=== PATIENT | female | born 1970 | race Caucasian/White ===

== ENCOUNTER 2021-05-22 11:15 | Emergency (ER) | payer BC, SELFPAY ==
--- NOTE | ~2021-05-22 | XR_ITS ---
EXAMINATION: CR X-RAY ANKLES AND FEET BILATERAL CLINICAL INFORMATION: Bilateral ankle and foot pain status post fall. COMPARISON: None TECHNIQUE: 3 views each of the bilateral ankles and feet were obtained. FINDINGS: Left ankle: There is a nondisplaced oblique spiral type fracture of the distal fibula extending to the lateral malleolus. The medial malleolus appears intact. The tibiotalar joint space is unremarkable. Mild to moderate soft tissue swelling is seen more pronounced laterally. Left foot. There is a minimally displaced transverse fracture at the level the proximal metaphysis of the third metatarsal. The remainder the digits are intact. The tarsal bones are normally aligned. There is mild soft tissue swelling. Right ankle. An osteochondral defect is seen along the medial articular margin of the talus. The tibiotalar joint space is unremarkable. The medial and lateral malleoli are intact. The soft tissues are unremarkable. Right foot: There is a minimally displaced fracture at the base of the fifth metatarsal. Mild adjacent soft tissue swelling is seen. The remainder the digits appear intact. XR/XR ankle LT min 3V IMPRESSION: 1. Left ankle nondisplaced spiral fracture of the distal fibula with adjacent moderate soft tissue swelling. 2. Left foot minimally displaced transverse fracture of the proximal metaphysis of the third metatarsal. 3. Right ankle medial talar osteochondral defect without acute features. 4. Right foot acute minimally displaced fracture of the base of the fifth metatarsal.
--- NOTE | ~2021-05-22 | XR_ITS ---
EXAMINATION: CR X-RAY ANKLES AND FEET BILATERAL CLINICAL INFORMATION: Bilateral ankle and foot pain status post fall. COMPARISON: None TECHNIQUE: 3 views each of the bilateral ankles and feet were obtained. FINDINGS: Left ankle: There is a nondisplaced oblique spiral type fracture of the distal fibula extending to the lateral malleolus. The medial malleolus appears intact. The tibiotalar joint space is unremarkable. Mild to moderate soft tissue swelling is seen more pronounced laterally. Left foot. There is a minimally displaced transverse fracture at the level the proximal metaphysis of the third metatarsal. The remainder the digits are intact. The tarsal bones are normally aligned. There is mild soft tissue swelling. Right ankle. An osteochondral defect is seen along the medial articular margin of the talus. The tibiotalar joint space is unremarkable. The medial and lateral malleoli are intact. The soft tissues are unremarkable. Right foot: There is a minimally displaced fracture at the base of the fifth metatarsal. Mild adjacent soft tissue swelling is seen. The remainder the digits appear intact. XR/XR foot RT min 3V IMPRESSION: 1. Left ankle nondisplaced spiral fracture of the distal fibula with adjacent moderate soft tissue swelling. 2. Left foot minimally displaced transverse fracture of the proximal metaphysis of the third metatarsal. 3. Right ankle medial talar osteochondral defect without acute features. 4. Right foot acute minimally displaced fracture of the base of the fifth metatarsal.
--- NOTE | ~2021-05-22 | XR_ITS ---
EXAMINATION: CR X-RAY ANKLES AND FEET BILATERAL CLINICAL INFORMATION: Bilateral ankle and foot pain status post fall. COMPARISON: None TECHNIQUE: 3 views each of the bilateral ankles and feet were obtained. FINDINGS: Left ankle: There is a nondisplaced oblique spiral type fracture of the distal fibula extending to the lateral malleolus. The medial malleolus appears intact. The tibiotalar joint space is unremarkable. Mild to moderate soft tissue swelling is seen more pronounced laterally. Left foot. There is a minimally displaced transverse fracture at the level the proximal metaphysis of the third metatarsal. The remainder the digits are intact. The tarsal bones are normally aligned. There is mild soft tissue swelling. Right ankle. An osteochondral defect is seen along the medial articular margin of the talus. The tibiotalar joint space is unremarkable. The medial and lateral malleoli are intact. The soft tissues are unremarkable. Right foot: There is a minimally displaced fracture at the base of the fifth metatarsal. Mild adjacent soft tissue swelling is seen. The remainder the digits appear intact. XR/XR foot LT min 3V IMPRESSION: 1. Left ankle nondisplaced spiral fracture of the distal fibula with adjacent moderate soft tissue swelling. 2. Left foot minimally displaced transverse fracture of the proximal metaphysis of the third metatarsal. 3. Right ankle medial talar osteochondral defect without acute features. 4. Right foot acute minimally displaced fracture of the base of the fifth metatarsal.
--- NOTE | ~2021-05-22 | XR_ITS ---
EXAMINATION: CR X-RAY ANKLES AND FEET BILATERAL CLINICAL INFORMATION: Bilateral ankle and foot pain status post fall. COMPARISON: None TECHNIQUE: 3 views each of the bilateral ankles and feet were obtained. FINDINGS: Left ankle: There is a nondisplaced oblique spiral type fracture of the distal fibula extending to the lateral malleolus. The medial malleolus appears intact. The tibiotalar joint space is unremarkable. Mild to moderate soft tissue swelling is seen more pronounced laterally. Left foot. There is a minimally displaced transverse fracture at the level the proximal metaphysis of the third metatarsal. The remainder the digits are intact. The tarsal bones are normally aligned. There is mild soft tissue swelling. Right ankle. An osteochondral defect is seen along the medial articular margin of the talus. The tibiotalar joint space is unremarkable. The medial and lateral malleoli are intact. The soft tissues are unremarkable. Right foot: There is a minimally displaced fracture at the base of the fifth metatarsal. Mild adjacent soft tissue swelling is seen. The remainder the digits appear intact. XR/XR ankle RT min 3V IMPRESSION: 1. Left ankle nondisplaced spiral fracture of the distal fibula with adjacent moderate soft tissue swelling. 2. Left foot minimally displaced transverse fracture of the proximal metaphysis of the third metatarsal. 3. Right ankle medial talar osteochondral defect without acute features. 4. Right foot acute minimally displaced fracture of the base of the fifth metatarsal.
[2021-05-22 11:21] VITALS: BP 123/68; PULSE 69; RESP 18; TEMP 36.2; O2SAT 100; BMI 21.2
--- NOTE | 2021-05-22 14:21 | ED.LOWEXIN ---
HPI - Extremity Injury (Lower) General Chief Complaint: Extremity Injury, Lower Stated Complaint: FALL Time Seen by Provider: 05/22/21 11:35 History of Present Illness HPI Narrative: Patient complains to pain in both feet and ankles after tripping on stairs this morning, she can ambulate but it is very painful, no other injury, no numbness weakness or tingling, no headache no neck pain no back pain Related Data Previous Rx's Medication Instructions Recorded acetaminophen 500 mg tablet 1,000 mg PO QID PRN #30 tab 05/22/21 ibuprofen 600 mg tablet 600 mg PO Q6H PRN #20 tab 05/22/21 oxycodone 5 mg tablet 5 mg PO Q6H PRN #10 tab 05/22/21 Allergies Allergy/AdvReac Type Severity Reaction Status Date / Time No Known Allergies Allergy Verified 05/24/21 12:50 Review of Systems Review of Systems: Positive for bilateral foot and ankle pain after fall Negatives are no dizziness no weakness no fainting no feeling faint no preceding dizziness no headache no head injury no neck pain no chest pain no rib pain no difficulty breathing no abdominal pain no back pain no numbness weakness or tingling no other upper extremity pains or knee pains Yes all other systems are reviewed and are negative PMFSH Past Medical History Source: nursing notes reviewed Medical History No known health problems Social History Social History (Updated 05/24/21 @ 12:50 by Karoline Pisano) Current occupational status: employed Current occupation: senior tax accountant/rt hand Physical Exam Vital Signs: Vital Signs: Last Vital Signs Temp 97.2 F 05/22/21 11:21 Pulse 69 05/22/21 11:21 Resp 18 05/22/21 11:21 BP 123/68 05/22/21 11:21 Pulse Ox 100 05/22/21 11:21 Body Mass Index 21.2 General appearance is no acute distress Head is normocephalic atraumatic Neck is supple The chest is clear to auscultation bilateral no chest wall tenderness no rib tenderness The back full range of motion nontender Extremities upper extremities full range of motion Lower extremities there is tenderness and swelling on the medial aspects of both right and left feet and ankle, skin is intact on both ankles and neurovascular intact on both feet Course Course Course Narrative: X-ray showed a left ankle nondisplaced spiral fracture of the distal fibula, the left foot had a minimally displaced transverse fracture of the 3rd metatarsal The right foot had a minimally displaced fracture of the base of the 5th metatarsal This was discussed with orthopedist Dr. Mcdowell for best plan who advised ortho boot for bracing both feet as well as a walker and advised minimal weight-bearing and patient will follow in the office Patient agreed with this plan and was able to ambulate with the walker with advice to limit ambulation as much as possible and patient was discharged to follow with Dr. Mcdowell Discharge Plan Discharge Clinical Impression: Ankle fracture, left, Fracture of left foot, Foot fracture, right Patient Disposition: Home, Self-Care Additional Instructions: X-ray showed you have 2 fractures in your feet as well as a left ankle fracture Minimal weight-bearing Follow with orthopedist next week, this case was discussed with Dr. Mcdowell so make sure you tell the border measurer and cutter that when you make your appointment Return any time any worse condition or any concerns Prescriptions: New acetaminophen 500 mg tablet 1,000 mg PO QID PRN (Reason: pain) Qty: 30 RF: 0 ibuprofen 600 mg tablet 600 mg PO Q6H PRN (Reason: pain) Qty: 20 RF: 0 oxycodone 5 mg tablet 5 mg PO Q6H PRN (Reason: pain) Qty: 10 RF: 0 Referrals: Leeroy Mcdowell MD [Physician] - 2 days (Bilateral foot fractures and left ankle fracture) Stand Alone Forms: Work/School Release Interventions: ED Discharge Assessment Last Done: 05/22/21 14:33 Discharge Date/Time: 05/22/21 14:33
== END 2021-05-22 14:33 | disposition home or self-care (01) ==
PROVIDERS: Emergency Provider Emergency Medicine; PCP Internal Medicine
DX: S82.445A Nondisplaced spiral fracture of shaft of left fibula, initial encounter for closed fracture (principal); S92.332A Displaced fracture of third metatarsal bone, left foot, initial encounter for closed fracture; S92.351A Displaced fracture of fifth metatarsal bone, right foot, initial encounter for closed fracture; W10.8XXA Fall (on) (from) other stairs and steps, initial encounter; Y93.89 Activity, other specified; Y92.9 Unspecified place or not applicable; Y99.9 Unspecified external cause status
CPT/HCPCS: 73610; 73630; 99283

== ENCOUNTER → 2021-05-24 12:26 | Outpatient (BNVA) | payer BC, SELFPAY | PROVIDERS: PCP Internal Medicine; Visit Provider Physician Assistant ==

== ENCOUNTER 2021-06-23 06:03 | Outpatient (REF) | payer BC, SELFPAY ==
--- NOTE | ~2021-06-23 | XR_ITS ---
EXAMINATION: BILATERAL FOOT AND LEFT ANKLE. CLINICAL INFORMATION: Pain in left foot. COMPARISON: None TECHNIQUE: 3 views left ankle, 3 views each foot. FINDINGS: LEFT ANKLE: There is a nondisplaced distal fibular oblique fracture. The ankle mortise and subtalar joints are normal. There is moderate lateral malleolar soft tissue swelling. LEFT FOOT: There is a nondisplaced fracture proximal third metatarsal. No additional fracture or dislocation seen. There is mild dorsal mid mid foot soft tissue swelling. RIGHT FOOT: There is a displaced fracture base of fifth metatarsal. The ankle mortise and subtalar joints are normal. There is no visible acute fracture, dislocation or subluxation seen. The soft tissues are normal. XR/XR foot LT min 3V IMPRESSION: Nondisplaced fracture proximal third metatarsal left foot with mild dorsal mid foot soft tissue swelling. There is an oblique fracture distal fibula with moderate lateral malleolar soft tissue swelling left ankle. Mildly displaced fracture base of fifth metatarsal right foot with mild soft tissue swelling.
--- NOTE | ~2021-06-23 | XR_ITS ---
EXAMINATION: BILATERAL FOOT AND LEFT ANKLE. CLINICAL INFORMATION: Pain in left foot. COMPARISON: None TECHNIQUE: 3 views left ankle, 3 views each foot. FINDINGS: LEFT ANKLE: There is a nondisplaced distal fibular oblique fracture. The ankle mortise and subtalar joints are normal. There is moderate lateral malleolar soft tissue swelling. LEFT FOOT: There is a nondisplaced fracture proximal third metatarsal. No additional fracture or dislocation seen. There is mild dorsal mid mid foot soft tissue swelling. RIGHT FOOT: There is a displaced fracture base of fifth metatarsal. The ankle mortise and subtalar joints are normal. There is no visible acute fracture, dislocation or subluxation seen. The soft tissues are normal. XR/XR ankle LT min 3V IMPRESSION: Nondisplaced fracture proximal third metatarsal left foot with mild dorsal mid foot soft tissue swelling. There is an oblique fracture distal fibula with moderate lateral malleolar soft tissue swelling left ankle. Mildly displaced fracture base of fifth metatarsal right foot with mild soft tissue swelling.
--- NOTE | ~2021-06-23 | XR_ITS ---
EXAMINATION: BILATERAL FOOT AND LEFT ANKLE. CLINICAL INFORMATION: Pain in left foot. COMPARISON: None TECHNIQUE: 3 views left ankle, 3 views each foot. FINDINGS: LEFT ANKLE: There is a nondisplaced distal fibular oblique fracture. The ankle mortise and subtalar joints are normal. There is moderate lateral malleolar soft tissue swelling. LEFT FOOT: There is a nondisplaced fracture proximal third metatarsal. No additional fracture or dislocation seen. There is mild dorsal mid mid foot soft tissue swelling. RIGHT FOOT: There is a displaced fracture base of fifth metatarsal. The ankle mortise and subtalar joints are normal. There is no visible acute fracture, dislocation or subluxation seen. The soft tissues are normal. XR/XR foot RT min 3V IMPRESSION: Nondisplaced fracture proximal third metatarsal left foot with mild dorsal mid foot soft tissue swelling. There is an oblique fracture distal fibula with moderate lateral malleolar soft tissue swelling left ankle. Mildly displaced fracture base of fifth metatarsal right foot with mild soft tissue swelling.
== END 2021-06-23 06:04 | disposition home or self-care (01) ==
LOC: HO.HOSX 06:03
PROVIDERS: Visit Provider Physician Assistant
DX: S82.832D Other fracture of upper and lower end of left fibula, subsequent encounter for closed fracture with routine healing (principal); S92.351D Displaced fracture of fifth metatarsal bone, right foot, subsequent encounter for fracture with routine healing; S92.332D Displaced fracture of third metatarsal bone, left foot, subsequent encounter for fracture with routine healing
CPT/HCPCS: 73610; 73630

== ENCOUNTER 2021-07-28 13:05 | Outpatient (REF) | payer BC, SELFPAY ==
--- NOTE | ~2021-07-28 | XR_ITS ---
EXAMINATION: XR FOOT, RIGHT CLINICAL INFORMATION: Displaced fracture fifth metatarsal bone. COMPARISON: Radiograph of the right foot dated from 06/23/2021. TECHNIQUE: AP, lateral, and oblique views of the right foot. FINDINGS: Unchanged appearance of a mildly displaced fracture at the base of the fifth metatarsal bone. No other fractures. Joints are preserved. XR/XR foot RT min 3V IMPRESSION: No significant change in the appearance of a comminuted and minimally displaced fracture at the base of the fifth metatarsal bone.
--- NOTE | ~2021-07-28 | XR_ITS ---
EXAMINATION: XR FOOT, LEFT CLINICAL INFORMATION: Pain in the left foot. COMPARISON: Radiograph dated from 06/23/2021. TECHNIQUE: AP, lateral, and oblique views of the left foot. FINDINGS: Healing fracture at the base of the third metatarsal bone with some bony bridging and subcortical sclerosis. Alignment is unchanged with approximately 3 mm of medial displacement of the distal fracture fragment. On the lateral view a subtle cuboid fracture is also stable. XR/XR foot LT min 3V IMPRESSION: Interval healing of a fracture at the base of the third metatarsal bone which remains slightly displaced. Additional fracture of the cuboid is not significantly changed. Given multiple fractures, consider further evaluation with a CT of the left foot to assess the patency of the Lisfranc ligament and rule out other injuries.
--- NOTE | ~2021-07-28 | XR_ITS ---
EXAMINATION: XR ANKLE, LEFT CLINICAL INFORMATION: Pain. Follow-up fracture. COMPARISON: Radiograph of the left ankle dated from 06/23/2021. TECHNIQUE: AP, lateral, and mortise views of the left ankle. FINDINGS: Unchanged obliquely oriented fracture of the distal fibula. The ankle mortise and talar dome are preserved. There is decreased lateral malleolus soft tissue edema. XR/XR ankle LT min 3V IMPRESSION: Very minimal bony bridging with less apparent fracture lines within an obliquely oriented fracture of the distal fibula. Alignment is unchanged.
== END 2021-07-28 13:06 | disposition home or self-care (01) ==
LOC: HO.HOSX 13:05
PROVIDERS: Visit Provider Physician Assistant
DX: S82.832D Other fracture of upper and lower end of left fibula, subsequent encounter for closed fracture with routine healing (principal); S92.332D Displaced fracture of third metatarsal bone, left foot, subsequent encounter for fracture with routine healing; S92.352D Displaced fracture of fifth metatarsal bone, left foot, subsequent encounter for fracture with routine healing
CPT/HCPCS: 73610; 73630

== ENCOUNTER 2021-09-09 14:00 | Outpatient (RCR) | payer BC, SELFPAY ==
--- NOTE | 2021-07-07 10:20 | MHC.PT.EP ---
[facility] [place] Office [place] Office [place] Office [address] [phone] F: [phone] F: [phone] F: [phone] F: [phone] Physical Therapy Plan of Care Date of Evaluation: Date of Surgery: N/A Diagnosis: Other fracture of upper and lower end of left fibula Assessment: Pt is a 50yo F who presents to PT s/p L closed fracture of distal end of left fibula, Fracture of fifth metatarsal bone of right foot, and Fracture of third metatarsal bone of left foot s/p fall down the stairs. She did not undergo surgery and has B boots that she is able to wean off on 07/07/21 per ortho. She presents to PT today with current impairments in pain, ROM, strength, muscle length, gait, and balance. She is limited functionally by prolonged standing, ambulation, stairs, and squatting. She is an excellent candidate for skilled PT services to address current impairments and facilitate return to PLOF. Frequency and Duration: The patient will be seen 2x/week for 5 weeks Short Term Goals: Pt will be I with HEP to promote self management of symptoms. Pt will improve DF ROM by 5 deg LLE. Public Services Assistant Goals: Pt will demonstrate full ROM and strength throughout L ankle Pt will ambulate > 30 min with pain < 2 /10 Pt will demonstrate improvements in functional mobility as evidenced by statistically significant improvement in LEFI outcome measure. Treatment Plan: Modalities to reduce pain, spasms and effusion. Manual therapy to restore motion and function. Therapeutic exercise to improve strength and flexibility. Neuromuscular re-education for posture and balance. Therapeutic activities to return to functional activities of daily living. Electronically signed by: Irena Haines, PT, DPT Please sign and return to therapist. Thank you for your referral.
--- NOTE | 2021-09-09 15:11 | MHC.PT.DC ---
[facility] [place] Office [place] Office [place] Office [address] [phone] F: [phone] F: [phone] F: [phone] F: [phone] Physical Therapy Discharge Report Diagnosis: Other fracture of upper and lower end of left fibula Date of Surgery: N/A Date of Evaluation: 07/06/21 Date of Discharge: 09/09/21 Treatments to Date: 16 Cancellations to Date: No Shows to Date: Discharge Status: Achieved Goals Improved Function Independent with HEP Discharge Summary: Pt has make excellent progress since SOC. She has improved her LEFI outcome measure from 23/80 on initial PT evaluation to 72/80 today. She has met all her STGs and LTGS. She does continue to have mild discomfort on R lateral aspect of her foot and she was recommended to follow up with ortho if it does not improve within a few weeks. She is I with HEP and is being D/C from skilled PT services at this time. Pt reports no further questions for PT. No further skilled PT intervention indicated at this time. Electronically signed by: Irena Haines, PT, DPT Please sign and return to therapist. Thank you for your referral.
== END 2021-09-09 15:11 | disposition home or self-care (01) ==
LOC: HO.PT 14:00
PROVIDERS: PCP Internal Medicine; Visit Provider Physician Assistant
DX: S82.832A Other fracture of upper and lower end of left fibula, initial encounter for closed fracture (principal)
CPT/HCPCS: 97110; 97112; 97140; 97162; 97530

== ENCOUNTER 2025-06-11 10:16 | Outpatient (AMB) | payer BC, SELFPAY ==
--- NOTE | 2025-06-11 10:25 | MHC.PC.OV ---
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 Post menopausal: Yes Allergies No Known Allergies Allergy (Verified 06/11/25 10:28) Medication List - Last Reconciled 06/11/25 by Bushra Padilla PA-C acetaminophen 1,000 mg (2 x 500 mg) PO QID PRN ibuprofen 600 mg PO Q6H PRN Tobacco use date assessed: 06/11/25 Dental Screening Dental Screen Date: 06/11/25 Did you have a dental visit in the last 12 months?: Yes Did you have a dental problem in the last 6 months where you did not have access to dental care?: No Was dental information given to patient?: Patient has dentist HPI SMALL BUSINESS REPRESENTATIVE requesting CPE HPI Details Patient is a 54-year-old female who presents today to establish care and for a physical exam. She does not have any acute concerns today. Denies any significant past medical history. MSK: In 2020 she did fracture both feet and ankles. Has overall healed well. Mammo: 2018, overdue Bone density: never had, post menopause 3 years Colonoscopy: never had Checker: overdue Family history: Brother recently diagnosed with MDS, maternal grandmother had breast cancer in her 50s Son is getting in July Medical History (Updated 06/11/25 @ 10:48 by Bushra Padilla PA-C) Shingles No known health problems Surgical History (Updated 06/11/25 @ 10:37 by Lien Bowles MA) Hx of tonsillectomy Family History (Updated 06/11/25 @ 10:33 by Lien Bowles MA) Father Hypertension Diabetes Cardiovascular disease Substance abuse Paternal Grandmother Cardiovascular disease Maternal Grandfather Cardiovascular disease Mother Clotting disorder Maternal Grandmother Bone cancer Breast cancer Brother MDS (myelodysplastic syndrome) Social History (Updated 06/11/25 @ 10:34 by Lien Bowles MA) Housing: House Alcohol intake: current Patient Tobacco Use Status: Never used Tobacco e-Cigarette/Vaping Use: Never Used Second Hand Smoke Exposure: No Use of substances other than those prescribed or required for medical reasons: No service: No Current occupational status: employed Current occupation: rt hand/senior fund accountant Current occupational exposures/hazards: Yes Cognitive needs: No Hearing needs: No Vision needs: No Questionnaire PHQ-9 Over the last 2 weeks, how often have you been bothered by any of the following problems? 1. Little interest or pleasure in doing things: not at all 2. Feeling down, depressed, or hopeless: not at all 3. Trouble falling or staying asleep, or sleeping too much: not at all 4. Feeling tired or having little energy: not at all 5. Poor appetite or overeating: not at all 6. Feeling bad about yourself - or that you are a failure or have let yourself or your family down: not at all 7. Trouble concentrating on things, such as reading the newspaper or watching television: not at all 8. Moving or speaking so slowly that other people could have noticed. Or the opposite - being so fidgety or restless that you have been moving around a lot more than usual: not at all 9. Thoughts that you would be better off or of hurting yourself in some way: not at all Total score: 0 Depression Screening Interpretation: Negative Depression Screening Done: Yes 61157 - PHQ-9 Billing: Yes Source: Developed by Drs. Bo Arellano, Evette Vásquez, Philip Ackerman and colleagues, with an educational chauncey from [employer]. Thrive Questionnaire Date Thrive assessed: 06/11/25 I am a: Patient What is your living situation today?: I have a steady place to live Within the past 12 months, did the food you bought not last and you didn't have the money to get more?: Never true Within the past 12 months, did you worry whether your food would run out before you got money to buy more?: Never true Do you have trouble paying for medicines?: No Do you have trouble getting transportation to medical appointments?: No Do you have trouble paying your heating and electricity bill?: No Do you have trouble taking care of your child, family member or friend?: No Do you have trouble with day-to-day activities such as bathing, preparing meals, shopping, managing finances, etc.?: No Are you currently unemployed and looking for a job?: No Are you interested in more education?: No Please select the resources that you would like help with: None Currently or been in a relationship where the following occur: No concerns reported THRIVE Score: 0 AUDIT C Alcohol Use Questionnaire (AUDIT-C) 1. How often do you have a drink containing alcohol?: 2-4 times a month 2. How many drinks containing alcohol do you have on a typical day when you are drinking?: 1 or 2 3. How often do you have six or more drinks on one occasion?: Never Total Score: 2 YAMILKA-7 AMB Questionnaire YAMILKA-7 Date YAMILKA - 7 assessed: 06/11/25 Feeling nervous, anxious, or on edge: 0 = Not at all Not being able to stop or control worryin = Not at all Worrying too much about different things: 0 = Not at all Trouble relaxin = Not at all Being so restless that it is hard to sit still: 0 = Not at all Becoming easily annoyed or irritable: 0 = Not at all Feeling afraid as if something awful might happen: 0 = Not at all Total YAMILKA-7 score (0-4 normal; 5-9 mild; 10-14 moderate; 15-21 severe): 0 Source: Developed by Drs. Bo Arellano, Evette Vásquez, Philip Ackerman and colleagues, with an educational chauncey from [employer]. YAMILKA-7 Assessment Billing YAMILKA-7 Assessment Tool: YAMILKA-7 Assessment 24641 Physical exam (Primary Care) Vital Signs: Last Vital Signs Temp 97.8 F 06/11/25 10:34 Pulse 80 06/11/25 10:34 BP 102/82 06/11/25 10:34 Pulse Ox 98 06/11/25 10:34 Oxygen Delivery Method Room Air 06/11/25 10:34 BMI result Body Mass Index 20.8 Tobacco/Smoking Status: Tobacco use Status Tobacco use date assessed 06/11/25 06/11/25 10:36 Patient Tobacco Use Status Never used Tobacco 06/11/25 10:36 e-Cigarette/Vaping Use Never Used 06/11/25 10:36 PHQ-9: PHQ-9 Score PHQ-9: Total score 0 06/11/25 10:27 Depression Screening Interpretation: Negative Thrive Assessment: Date of Thrive Assessment Date Thrive assessed 06/11/25 06/11/25 10:27 Currently or been in a relationship where the following occur: No concerns reported Const Orientation/consciousness: patient oriented x3 HENMT Ears: hearing grossly normal bilaterally and TM's normal bilaterally General nose exam: No nasal polyps present Face and sinus: Yes sinuses nontender Mouth: Normal oral and palatal mucosa present Eyes Pupils: Equal, round and reactive pupils present EOM: EOMs intact bilaterally Neck Neck: Yes full ROM and Yes no lymphadenopathy Thyroid: Thyroid normal Chest Chest palpation & inspection: normal inspection of the chest Breast/axilla inspection: normal inspection of the breasts and normal inspection of the axillae Breast/axilla palpation: normal palpation of the breasts and normal palpation of the axillae Resp Auscultation: clear to auscultation bilaterally Cardio Rate: regular rate Rhythm: regular rhythm Heart sounds: S1 normal heart sound present and S2 normal heart sound present Peripheral pulses: Peripheral pulses 2+ throughout GI Other: Soft, nontender Auscultation: normal bowel sounds Rectal Exam - Female: deferred General: Yes no CVA tenderness Back/Spine/Pelvis Other: Nontender Back: no CVA tenderness Skin General skin exam: no rashes or lesions noted Neuro General: patient oriented x3, gait normal, CN's II-XI intact bilaterally and deep tendon reflexes 2+ bilaterally Cranial nerves: Yes Equal, round and reactive pupils present Motor exam (neuro): 5/5 motor strength present throughout Sensory Exam: double simultaneous stimulation for sensation normal Coordination: [id number] test normal and Romberg test negative Extrem General: Yes normal to inspection and Yes full ROM Psych Affect: normal affect Attitude: cooperative Thought process: Normal thought process present Thought content: Normal thought content present Insight: Good insight present (Psych) Judgement: Good judgement present (Psych) Coding Level of Care Code New Pt Prev Care 40-64y(03389) Diagnoses Encounter for routine history and physical examination Z00.00 Additional Codes PHQ-9 - 52551 - PHQ-9 Billing: Yes ([id number]) YAMILKA-7 Assessment Billing - YAMILKA-7 Assessment Tool: YAMILKA-7 Assessment 52369 ([id number]) Assessment & Plan Assessment & Plan (1) Encounter for routine history and physical examination: Code(s): Z00.00 - Encounter for general adult medical examination without abnormal findings Plan: Health maintenance reviewed Labs ordered Bone density ordered 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 Referral to GI for colonoscopy screening Mammogram ordered Orders: Orders TSH reflex Free T4 Today Z00.00 - Encounter for general adult medical examination without abnormal findings UA CC w/rflx Micro + Cult Today Z00.00 - Encounter for general adult medical examination without abnormal findings, Z13.220 - Encounter for screening for lipoid disorders Microalbumin, Random (w Creat) Today Z00.00 - Encounter for general adult medical examination without abnormal findings MM screening mammo BI Today Z12.31 - Encounter for screening mammogram for malignant neoplasm of breast Complete Blood Count Auto Diff Today Z00.00 - Encounter for general adult medical examination without abnormal findings Comprehensive Rickman. 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
[2025-06-11 10:34] VITALS: BP 102/82; PULSE 80; TEMP 36.6; O2SAT 98; BMI 20.8
== END 2025-06-11 10:59 | disposition home or self-care (01) ==
LOC: HO.HMCFM 10:17
PROVIDERS: PCP Physician Assistant; Visit Provider Physician Assistant
DX: Z00.00 Encounter for general adult medical examination without abnormal findings (principal)

== ENCOUNTER 2025-06-11 10:16 | Outpatient (REF) | payer BC, SELFPAY ==
[2025-06-11 14:16] LABS: MANUAL DIFF FLAG NO
[2025-06-11 14:19] LABS: Hematocrit 38.0 % (37.0-47.0); Hemoglobin 12.5 g/dl (12.0-16.0); Imm Gran Abs Auto 0.01 X10*3/uL (0.00-0.03); Imm Gran Pct Auto 0.2 % (0.0-0.4); Lymphocytes Absolute Auto 2.7 X10*3/uL (1.2-4.9); Mean Corpuscular HGB Conc 32.9 g/dl (31.0-35.0); Mean Corpuscular Hemoglobin 30.9 pg (27.0-33.0); Mean Corpuscular Volume 94.1 fL (80.0-98.0); NRBC Abs Auto 0.000 X10*3/uL (0.0-0.012); NRBC Pct Auto 0.0 /100WBC (0.0-0.2); Platelet Count 148 X10*3/uL (160-400); Red Blood Count 4.04 X10*6/uL (4.20-5.50); White Blood Count 6.1 X10*3/uL (4.8-10.8)
[2025-06-11 14:34] LABS: Appearance Urine Clear; Glucose Urine UA Negative (Negative); PH 5.0 (5.0-9.0); Specific Gravity - Urine 1.015 (1.005-1.025); UMIC TRIGGER UACC YES
[2025-06-11 14:39] LABS: UACC Culture Trigger YES
[2025-06-11 14:39] LABS: Alanine Aminotransferase 15 U/L (0-31); Albumin Level 4.9 g/dL (3.5-5.0); Alkaline Phosphatase 56 U/L (39-117); Anion Gap 13 (12-20); Aspartate Amino Transferase 21 U/L (5-31); Blood Urea Nitrogen 15 mg/dL (9-16); Calcium 9.9 mg/dL (8.4-10.2); Carbon Dioxide 27 mmol/L (22-29); Chloride 104 mmol/L (96-108); Cholesterol 219 mg/dL (<200); Estimated Glomerular Filt Rate > 60; HDL Cholesterol 55 mg/dL (>40); Potassium 4.1 mmol/L (3.3-5.1); Sodium 140 mmol/L (135-145); Total Protein 8.1 g/dL (6.5-8.0); Triglycerides 92 mg/dL (<150)
[2025-06-11 14:58] LABS: Microalbum/Creatinine Ratio Ur 7.5 ug/mg cr (<30)
== END 2025-06-11 10:17 | disposition home or self-care (01) ==
LOC: HO.WFDLDS 10:16
PROVIDERS: PCP Physician Assistant; Visit Provider Physician Assistant
DX: Z00.00 Encounter for general adult medical examination without abnormal findings (principal); Z13.6 Encounter for screening for cardiovascular disorders; R82.90 Unspecified abnormal findings in urine; N39.0 Urinary tract infection, site not specified; Z78.0 Asymptomatic menopausal state
CPT/HCPCS: 36415; 80053; 80061; 81001; 82043; 82570; 84443; 85025; 87086; 87088; 87186; 96127

== ENCOUNTER 2025-08-20 08:13 | Outpatient (REF) | payer BC, SELFPAY ==
--- NOTE | ~2025-08-20 | MM_ITS ---
STUDY: DUAL ENERGY X-RAY ABSORPTIOMETRY / DXA REASON FOR EXAM: Female, 55 years old Z78.0 - Asymptomatic menopausal state TECHNIQUE: Bone Mineral Density (BMD) measurements of the lumbar spine and left hip were obtained using [email or web address] COMPARISON: None FINDINGS: L1-L4 BMD: 1.017 g/cm2 L1-L4 T score: -1.4. This corresponds to osteopenia. Left femoral neck BMD: 0.845 g/cm2 Left femoral neck T score: -1.4. This corresponds to osteopenia. Left total hip BMD: 0.824 g/cm2 Left total hip T score: -1.5. This corresponds to osteopenia. FRAX score: 10 year risk of major osteoporotic fracture 10.8%, 10 year risk of hip fracture 0.9% MM/XR DEXA axial skeleton IMPRESSION: Osteopenia Reference Information: The T-score is the number of standard deviations above or below the standard which is normal for young adults at their peak bone mineral density. The World Health Organization (WHO) interprets the T-scores as follows: At or above -1 SD Normal bone density Between -1 and -2.5 SD Osteopenia At or below -2.5 SD Osteoporosis Electronically signed by: Ghislaine Flores MD 08/20/2025 09:03 AM EDT
--- NOTE | ~2025-08-20 | MM_ITS ---
EXAMINATION: MM SCREENING DIGITAL BREAST TOMOSYNTHESIS, BILATERAL CLINICAL INFORMATION: Screening. Asymptomatic. COMPARISON: Comparison made to multiple prior, most recent March 28, 2019, and most remote December 22, 2015. TECHNIQUE: Digital breast tomosynthesis is performed in mediolateral oblique and craniocaudal views along with computer-aided detection (CAD). Synthesized 2D images are generated from the tomosynthesis. FINDINGS: BREAST COMPOSITION: The breasts are extremely dense, which lowers the sensitivity of mammography. BILATERAL BREASTS: Diffuse round and rim calcifications in both breasts have typically benign features. No significant masses, suspicious calcifications or other abnormalities are seen in either breast. MM/MM tomosynthesis screening BI IMPRESSION: BILATERAL BREASTS: Benign, no mammographic evidence of malignancy. Normal interval follow-up is recommended in 12 months. ASSESSMENT: BI-RADS: Category 2: Benign RECOMMENDATION: Routine annual mammography screening. FOLLOW-UP: 1 year F/U This examination should not preclude the clinical evaluation of a suspicious palpable abnormality. This patient's information was entered into a reminder system with a target due date for their next mammogram. Electronically signed by: Ghislaine Flores MD 08/24/2025 01:42 PM EDT
== END 2025-08-20 08:14 | disposition home or self-care (01) ==
LOC: HO.MAMMO 08:13
PROVIDERS: PCP Physician Assistant; Visit Provider Physician Assistant
DX: Z12.31 Encounter for screening mammogram for malignant neoplasm of breast (principal); Z13.820 Encounter for screening for osteoporosis; Z78.0 Asymptomatic menopausal state
CPT/HCPCS: 77063; 77067; 77080

== ENCOUNTER → 2025-08-20 08:45 | Outpatient (BNV) | payer BC, SELFPAY | PROVIDERS: PCP Physician Assistant; Visit Provider Radiology Body Imaging | DX: E28.39 Other primary ovarian failure (principal) | CPT/HCPCS: 77080 ==

== ENCOUNTER 2025-10-09 09:19 | Outpatient (REF) | payer BC, SELFPAY ==
[2025-10-09 14:56] LABS: MANUAL DIFF FLAG NO
[2025-10-09 15:01] LABS: Hematocrit 39.5 % (37.0-47.0); Hemoglobin 12.8 g/dl (12.0-16.0); Imm Gran Abs Auto 0.01 X10*3/uL (0.00-0.03); Imm Gran Pct Auto 0.2 % (0.0-0.4); Lymphocytes Absolute Auto 2.7 X10*3/uL (1.2-4.9); Mean Corpuscular HGB Conc 32.4 g/dl (31.0-35.0); Mean Corpuscular Hemoglobin 31.4 pg (27.0-33.0); Mean Corpuscular Volume 97.1 fL (80.0-98.0); NRBC Abs Auto 0.000 X10*3/uL (0.0-0.012); NRBC Pct Auto 0.0 /100WBC (0.0-0.2); Platelet Count 170 X10*3/uL (160-400); Red Blood Count 4.07 X10*6/uL (4.20-5.50); White Blood Count 6.2 X10*3/uL (4.8-10.8)
[2025-10-09 15:19] LABS: Alanine Aminotransferase 18 U/L (0-31); Albumin Level 4.7 g/dL (3.5-5.0); Alkaline Phosphatase 53 U/L (39-117); Anion Gap 10 (12-20); Aspartate Amino Transferase 22 U/L (5-31); Blood Urea Nitrogen 17 mg/dL (9-16); Calcium 9.8 mg/dL (8.4-10.2); Carbon Dioxide 28 mmol/L (22-29); Chloride 104 mmol/L (96-108); Cholesterol 223 mg/dL (<200); Estimated Glomerular Filt Rate > 60; HDL Cholesterol 62 mg/dL (>40); Potassium 4.3 mmol/L (3.3-5.1); Sodium 138 mmol/L (135-145); Total Protein 7.7 g/dL (6.5-8.0); Triglycerides 85 mg/dL (<150)
[2025-10-10 05:09] LABS: Lyme Abs Screen <0.90 index
== END 2025-10-09 09:20 | disposition home or self-care (01) ==
LOC: HO.WFDLDS 09:19
PROVIDERS: PCP Physician Assistant; Visit Provider Physician Assistant
DX: S70.362A Insect bite (nonvenomous), left thigh, initial encounter (principal); W57.XXXA Bitten or stung by nonvenomous insect and other nonvenomous arthropods, initial encounter; E78.5 Hyperlipidemia, unspecified
CPT/HCPCS: 36415; 80053; 80061; 84443; 85025; 86617; 86618

== ENCOUNTER 2025-10-09 09:19 | Outpatient (AMB) | payer BC, SELFPAY ==
--- NOTE | 2025-10-09 09:22 | A.OFFPC_ITS ---
Vital Signs 10/09/25 09:24 Height 5 ft 9 in Weight 144 lb 4 oz BMI 21.3 BP 96/66 Blood Pressure Location Lt brachial Position Sitting Respiration 12 Pulse 71 Pulse Source Pulse Oximeter Temp 97.6 F Temp Source Oral Pulse Oximetry (%) 96 Oxygen Delivery Method Room Air Intake Visit Reasons: urgent care fu tick bite Intake Note: Urgent care in [place] one month ago follow up tick bite. Requesting blood work. No symptoms. 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 She went to [place] urgent care on August 18 after she noticed a tick imbedded on her left thigh. She was able to remove most of the tick except for a leg. They excise the rest. She was started on doxycycline 200 mg and was told to follow up in about 6 weeks to have labs checked. She denies any rash, fever, chills, swollen lymph nodes. Overall feeling well. She did complete labs previously in the summer and was noted to have elevated cholesterol. She is fasting today and states that she would like to recheck labs. [facility] Medical History (Updated 10/09/25 @ 10:04 by Bushra Padilla PA-C) Shingles No known health problems Surgical History Hx of tonsillectomy Family History Father Hypertension Diabetes Cardiovascular disease Substance abuse Paternal Grandmother Cardiovascular disease Maternal Grandfather Cardiovascular disease Mother Clotting disorder Maternal Grandmother Bone cancer Breast cancer Brother MDS (myelodysplastic syndrome) Social History (Updated 10/09/25 @ 09:31 by Eda Longoria CMA) Housing: House Alcohol intake: current Patient Tobacco Use Status: Never used Tobacco e-Cigarette/Vaping Use: Never Used Second Hand Smoke Exposure: No Use of substances other than those prescribed or required for medical reasons: No service: No Current occupational status: employed Current occupation: rt hand/manufacturing accountant Current occupational exposures/hazards: Yes Cognitive needs: No Hearing needs: No Vision needs: No Questionnaire Thrive Questionnaire Date Thrive assessed: 06/04/25 I am a: Patient What is your living situation today?: I have a steady place to live Within the past 12 months, did the food you bought not last and you didn't have the money to get more?: Never true Within the past 12 months, did you worry whether your food would run out before you got money to buy more?: Never true Do you have trouble paying for medicines?: No Do you have trouble getting transportation to medical appointments?: No Do you have trouble paying your heating and electricity bill?: No Do you have trouble taking care of your child, family member or friend?: No Do you have trouble with day-to-day activities such as bathing, preparing meals, shopping, managing finances, etc.?: No Are you currently unemployed and looking for a job?: No Are you interested in more education?: No Please select the resources that you would like help with: None Currently or been in a relationship where the following occur: No concerns reported THRIVE Score: 0 AUDIT C Alcohol Use Questionnaire (AUDIT-C) 1. How often do you have a drink containing alcohol?: Monthly or less 2. How many drinks containing alcohol do you have on a typical day when you are drinking?: 1 or 2 3. How often do you have six or more drinks on one occasion?: Never Total Score: 1 YAMILKA-7 AMB Questionnaire YAMILKA-7 Date YAMILKA - 7 assessed: 06/11/25 Source: Developed by Drs. Bo Arellano, Evette Vásquez, Philip Ackerman and colleagues, with an educational chauncey from [employer]. Physical exam (Primary Care) Vital Signs: Last Vital Signs Temp 97.6 F 10/09/25 09:24 Pulse 71 10/09/25 09:24 Resp 12 10/09/25 09:24 BP 96/66 10/09/25 09:24 Pulse Ox 96 10/09/25 09:24 Oxygen Delivery Method Room Air 10/09/25 09:24 BMI result Body Mass Index 21.3 Tobacco/Smoking Status: Tobacco use Status Tobacco use date assessed 10/09/25 10/09/25 09:31 Patient Tobacco Use Status Never used Tobacco 10/09/25 09:31 e-Cigarette/Vaping Use Never Used 10/09/25 09:31 Thrive Assessment: Date of Thrive Assessment Date Thrive assessed 06/04/25 10/09/25 09:23 Currently or been in a relationship where the following occur: No concerns reported Const Orientation/consciousness: patient oriented x3 HENMT Ears: hearing grossly normal bilaterally Neck Thyroid: Thyroid normal Lymphatic: no lymphadenopathy noted Resp Auscultation: clear to auscultation bilaterally Cardio Rate: regular rate Rhythm: regular rhythm Heart sounds: S1 normal heart sound present and S2 normal heart sound present Skin General skin exam: no rashes or lesions noted Neuro General: patient oriented x3, gait normal and no focal motor deficits Coding Level of Care Code Est Pt Level 4 (61277) Add On Problem Visit Only Diagnoses Dyslipidemia E78.5 Tick bite of left thigh S70.362A; W57.XXXA Assessment & Plan Assessment & Plan (1) Dyslipidemia: Code(s): E78.5 - Hyperlipidemia, unspecified Category: Medical Plan: Labs ordered today. We will follow up pending test results (2) Tick bite of left thigh: Code(s): S70.362A - Insect bite (nonvenomous), left thigh, initial encounter; W57.XXXA - Bitten or stung by nonvenomous insect and other nonvenomous arthropods, initial encounter Category: Medical Plan: Lab ordered. Asymptomatic Orders: Orders TSH reflex Free T4 Today E78.5 - Hyperlipidemia, unspecified, S70.362A - Insect bite (nonvenomous), left thigh, initial encounter, W57.XXXA - Bitten or stung by nonvenomous insect and other nonvenomous arthropods, initial encounter Lyme IgG/IgM w/reflex to WB Today E78.5 - Hyperlipidemia, unspecified, S70.362A - Insect bite (nonvenomous), left thigh, initial encounter, W57.XXXA - Bitten or stung by nonvenomous insect and other nonvenomous arthropods, initial encounter Lipid Panel Today E78.5 - Hyperlipidemia, unspecified, S70.362A - Insect bite (nonvenomous), left thigh, initial encounter, W57.XXXA - Bitten or stung by nonvenomous insect and other nonvenomous arthropods, initial encounter Complete Blood Count Auto Diff Today E78.5 - Hyperlipidemia, unspecified, S70.362A - Insect bite (nonvenomous), left thigh, initial encounter, W57.XXXA - Bitten or stung by nonvenomous insect and other nonvenomous arthropods, initial encounter Comprehensive Callahan. Panel Fast Today E78.5 - Hyperlipidemia, unspecified, S70.362A - Insect bite (nonvenomous), left thigh, initial encounter, W57.XXXA - Bitten or stung by nonvenomous insect and other nonvenomous arthropods, initial encounter
[2025-10-09 09:24] VITALS: BP 96/66; PULSE 71; RESP 12; TEMP 36.4; O2SAT 96; BMI 21.3
== END 2025-10-09 10:08 | disposition home or self-care (01) ==
LOC: HO.HMCFM 09:19
PROVIDERS: PCP Physician Assistant; Visit Provider Physician Assistant
DX: E78.5 Hyperlipidemia, unspecified (principal); S70.362A Insect bite (nonvenomous), left thigh, initial encounter; W57.XXXA Bitten or stung by nonvenomous insect and other nonvenomous arthropods, initial encounter